=== PATIENT | male | born 1975 | race Caucasian/White ===

== ENCOUNTER 2020-02-03 09:41 | Emergency (ER) | payer MEDICAID ==
[~2020-02-03] VITALS: Ht 160 cm; Wt 92.1 kg
[2020-02-03 09:54] VITALS: Ht 160 cm; Wt 92.1 kg
[2020-02-03 12:24] LABS: microscopic required? YES; urine erythrocyte NEGATIVE (NEGATIVE)
[2020-02-03 12:25] LABS: BASOPHIL % 0.3 % (0-2); RED CELL DISTRIBUTION WIDTH 13.8 % (11.5-14.5)
[2020-02-03 12:32] LABS: CALCIUM 8.3 mg/dL (8.5-10.1); CARBON DIOXIDE 23.3 mmol/L (21-32); CHLORIDE SERUM 98 mmol/L (98-107); CREATININE SERUM 0.9 mg/dL (0.7-1.3); GFR1 > 60 mL/min; GLUCOSE SERUM 100 mg/dL (74-106); PLATELET COUNT 59 x10^3mcL (130-400); POTASSIUM SERUM 3.9 mmol/L (3.5-5.1); SODIUM SERUM 132 mmol/L (136-145)
[2020-02-03 12:36] LABS: ALBUMIN 3.5 g/dL (3.4-5.0); ALKALINE PHOSPHATASE 106 U/L (46-116); ALT/SGPT 73 U/L (16-63); AST/SGOT 119 U/L (15-37); BILIRUBIN TOTAL 2.31 mg/dL (0.20-1.00); C REACTIVE PROTEIN 6.1 mg/dL (<=0.9); LACTIC DEHYDROGENASE (LDH) 245 U/L (100-190)
[2020-02-03 12:38] LABS: TOTAL PROTEIN, SERUM 8.8 g/dL (6.4-8.2)
[2020-02-03 12:40] LABS: AMPHETAMINE QUAL UR NONE DETECTED (See below)
[2020-02-03 16:42] VITALS: BP 123/86
== END 2020-02-03 16:42 | disposition home or self-care (01) ==
LOC: ED 09:41
PROVIDERS: Specialist
DX: U07.1 COVID-19 (principal); F10.239 Alcohol dependence with withdrawal, unspecified; J18.1 Lobar pneumonia, unspecified organism
CPT/HCPCS: 36600; 83880; 87804; J3490; Q0092; U0003-CS